=== PATIENT | male | born 1965 | race Caucasian/White ===

== ENCOUNTER 2022-02-22 08:45 | Emergency (ER) | payer SELFPAY ==
[2022-02-22] MEDS ORDERED: Ondansetron 4 MG Tab.DIS PO ONE (09:59)
[2022-02-22] MEDS ORDERED: Ketorolac 15 MG/ML SDV IM ONE (09:59)
== END 2022-02-22 11:45 | disposition home or self-care (01) ==
LOC: JD.ED 08:45
DX: U07.1 COVID-19 (principal); F17.210 Nicotine dependence, cigarettes, uncomplicated; Z91.048 Other nonmedicinal substance allergy status; Z79.899 Other long term (current) drug therapy
CPT/HCPCS: 36415; 80048; 87635; 96372; 99284; A9270; J1885; U0002

== ENCOUNTER 2025-02-24 09:24 | Day surgery (SDC) | payer SELFPAY ==
[~2025-02-24 09:24] MED LIST: Sodium Chloride 0.9% 10 ML Syringe FLUSH PRN; Sodium Chloride 0.9% 10 ML Syringe FLUSH SCH
[2025-02-24] MEDS: Lactated Ringers 1,000 ML IV SCH (10:10)
[2025-02-24 10:20] LABS: BASOPHILS ABSOLUTE AUTO 0.0 K/mm3 (0.0-0.2); BASOPHILS PERCENT AUTO 0.4 % (0.0-1.0); EOSINOPHILS ABSOLUTE AUTO 0.1 K/mm3 (0.0-0.4); EOSINOPHILS PERCENT AUTO 0.8 % (0.0-6.0); IMMATURE GRAN ABSOLUTE AUTO 0.04 K/mm3 (0.00-0.05); IMMATURE GRAN PERCENT AUTO 0.4 % (0.0-0.4); LYMPHOCYTES ABSOLUTE AUTO 1.8 K/mm3 (1.0-4.8); LYMPHOCYTES PERCENT AUTO 20.2 % (24.0-44.0); MEAN PLATELET VOLUME 9.8 fl (9.4-12.4); MONOCYTES ABSOLUTE AUTO 0.5 K/mm3 (0.0-0.8); MONOCYTES PERCENT AUTO 4.9 % (0.0-8.0); NEUTROPHILS ABSOLUTE AUTO 6.7 K/mm3 (1.8-7.7); NEUTROPHILS PERCENT AUTO 73.3 % (41.0-71.0); NRBC ABSOLUTE 0.00 (0.00-0.02); NRBC PERCENT 0.0 % (0.0-0.2); PLATELET COUNT,PLT 183 K/mm3 (150-400); RED BLOOD CELL COUNT 5.09 M/mm3 (4.52-5.90); WHITE BLOOD CELL COUNT,WBC 9.10 K/mm3 (3.9-11.3)
[2025-02-24] MEDS ORDERED: Midazolam 1 MG/ML 2 ML SDV ONE (10:27)
[2025-02-24] MEDS ORDERED: fentaNYL 100 MCG/2 ML SDV ONE (10:27)
[2025-02-24] MEDS ORDERED: propofoL 500 MG/50 ML 50 ML ONE (10:27)
[2025-02-24] MEDS ORDERED: Ropivacaine 0.5% 5 MG/ML 30 ML SDV ONE (10:33)
[2025-02-24 10:52] LABS: A/G RATIO 1.0 (1-2); ALANINE AMINOTRANSFERASE,ALT 23.0 U/L (16-63); ASPARTATE AMNIOTRANSFERASE,AST 17.0 U/L (15-37); BILIRUBIN TOTAL 0.6 mg/dL (0.2-1.0); BLOOD UREA NITROGEN,BUN 19.0 mg/dL (7-18); CARBON DIOXIDE,CO2 27.0 mEq/L (21-32); CHLORIDE,CL 103.0 mEq/L (98-107); CREATININE 0.7 mg/dL (0.7-1.3); EST CRCL DRUG DOSING (CG) 100.87 mL/min; ESTIMATED GFR 107.0 mL/min (>60); GLUCOSE RANDOM 103.0 mg/dL (70-99); POTASSIUM,K 4.0 mEq/L (3.5-5.1); PROTEIN TOTAL,TP 7.6 g/dl (6.4-8.2); SODIUM,NA 140.0 mEq/L (136-145)
[2025-02-24] MEDS ORDERED: Ketamine HCL/NACL, ISO-OSM 50 MG/5 ML Syringe ONE (11:38)
[2025-02-24] MEDS ORDERED: Glycopyrrolate 0.2 MG/ML 2 ML SDV ONE (11:40)
[2025-02-24] MEDS: EPINEPHrine 1 MG/ML SDV ONE (11:56)
[2025-02-24] MEDS ORDERED: Ketorolac 30 MG/ML SDV ONE (12:07)
[2025-02-24] MEDS ORDERED: Propofol 200 MG/20 ML SDV ONE (12:18)
[2025-02-24] MEDS ORDERED: fentaNYL 100 MCG/2 ML SDV IVPUSH PRN (12:42)
[2025-02-24] MEDS ORDERED: Ondansetron 4 MG/2 ML SDV IVPUSH PRN (12:42)
== END 2025-02-24 13:41 | disposition home or self-care (01) ==
LOC: JD.SDS 09:24
PROVIDERS: ATTEND Surgery
DX: K40.90 Unilateral inguinal hernia, without obstruction or gangrene, not specified as recurrent (principal); I10 Essential (primary) hypertension; Z88.8 Allergy status to other drugs, medicaments and biological substances; Z91.030 Bee allergy status; Z79.899 Other long term (current) drug therapy
CPT/HCPCS: 36415; 49505; 80053; 85025; 93005; J0171; J0665; J0690; J1596; J1885; J2250; J2704; J2795; J3010; J7120; J7620; A9270-GY; J3490